=== PATIENT | female | born 1945 | race Caucasian/White ===

== ENCOUNTER 2017-10-01 17:33 | Emergency (ER) | payer MEDICARE, OTHER ==
[~2017-10-01] VITALS: Ht 167.6 cm; Wt 43.1 kg
[2017-10-01] MEDS ORDERED: PAROXETINE HCL10 MG PO (17:39)
[2017-10-01] MEDS ORDERED: TRAZODONE50 MG PO (17:39)
[2017-10-01] MEDS ORDERED: SYMBICORT 10.10.2 M1 IH (17:40)
[2017-10-01] MEDS ORDERED: IPRATROPIUM BROM3 M2 IH (17:40)
[2017-10-01] MEDS ORDERED: BUDESONIDE0.25 MG/2 IH (17:41)
--- NOTE | 2017-10-01 17:43 | Emergency Room Report ---
History of Present Illness Time Seen by [id number] Presenting Problem in Triage Pt arrived:Walked Presenting Problem:PT REPORTS BEING FEEL BACK MOST OF THE DAY. CALLED EMS R/T INCREASED SOA. 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 N Clinical Suspician of Infection? N Mental Status: 1 - Regular (Normal Baseline) Sepsis Risk:Low Sepsis Risk Have you (or family members/close friends) recently traveled outside the [place]? N If Yes, where/when: Have you had exposure to infectious disease within the past month? N TB? Other? Specify: Pt with oxygen dependent COPD, quit smoking one month ago but 51 py hx prior to that; had wheezing at home and called EMS; received duoneb and immediately felt better and states "I wish I could have gotten the ambulance to turn around". Has chronic cough, no fever, no calf pain, no CP, no complaints now. ALLERGIES Coded Allergies: No Known Allergies (10/01/17) Home Medications Reported Medications PAROXETINE HCL (Paroxetine Hcl) 10 MG PO DAILY #30 Trazodone Hcl (Trazodone HCl) 50 MG PO QHS #30 IPRATROPIUM/ALBUTEROL SULFATE (Iprat-Albut 0.5-3(2.5) MG/3 Ml) 3 ML IH Q6HP PRN SOA BUDESONIDE/FORMOTEROL FUMARATE (Symbicort 160-4.5 Mcg Inhaler) 1 AER IH BID Budesonide (Pulmicort) 0.25 MG IH BID History Medical History General CAD? No Angina: No MS: No Hypertension? No Hyperlipidemia? No CHF? No DVT? No PE? No COPD? Yes Asthma? No Anemia? No GERD? No Gastric ulcers? No GI Bleed? No Hernia? No Thyroid Problems? No Hypothyroidism? No CVA? No Seizures? No Diabetes? No Renal Insuffiency? No End Stage Renal Disease? No UTI? No Stones? No GB Disease: No Nephritic Syndrome? No Asplenia? No Hepatitis? No Sickle Cell Disease? No Arthritis? No Migraines? No Cataracts? No Glaucoma? No MRSA? No HIV? No TB? No Anxiety? No Depression? Yes Cancer? No More? No Immunization Hx DT/Tetanus Unknown Surgical Hx Previous Surgery?Y EXP Tubal Ligation HYSTERECTOMY Family History Family Hx Diabetes Yes CAD Yes Hypertension Yes Hyperlipidemia Yes Cancer Yes TB Yes Social History Smoking Hx Smoker: Former Smoker Tobacco: No Packs/day 1 1/2 - 2 Packs Alcohol Alcohol: No Review of Systems All Other Systems Reviewed and Negative Respiratory see HPI Physical Exam Vital Signs Vital Signs Date Time Temp Pulse Resp B/P Pulse O2 O2 Flow FiO2 Ox Delivery Rate 10/01 1902 116 16 130/65 94 3 10/01 1817 108 18 110/83 93 3 10/01 1740 95 10/01 1734 98.1 101 18 119/67 95 3 General Appearance normal appearance, WD/WN, no apparent distress, thin Eye Exam - bilateral eye normal exam, bilateral eye PERRL, bilateral eye EOMI Neck normal inspection, non-tender, supple, full range of motion Respiratory Status Yes: trachea midline, chest symmetrical, non tender chest, productive cough. No : respiratory distress, tender on palpation, use of accessory muscles, pain on inspiration, pain on expiration, non productive cough (on oxygen NC). Lung Sounds bilateral: decreased breath sounds (no rrw). Cardiovascular normal exam, regular rate/rhythm, no peripheral edema, no gallop, no JVD, no murmur, no rub, normal peripheral pulses Gastrointestinal normal bowel sounds, normal exam, non tender, soft, no organomegaly, no pulsatile mass (scaphoid), no guarding, no rebound Extremities non-tender, normal range of motion, normal inspection, normal capillary refill, no calf tenderness, no pedal edema Strength 5 Upper Ext (L), 5 Upper Ext (R), 5 Lower Ext (L), 5 Lower Ext (R) Neurologic alert, normal exam, no motor/sensory deficits, oriented x 3 Glascow Coma Scale Glascow Coma Scale Response Value EYE response: 4 Spontaneously 4 MOTOR response: 6 OBEYS 6 VERBAL response: 5 Oriented & Converses 5 Total 15 Skin intact, normal color, warm/dry, pallor Medical Decision Making LABS/Meds/Orders Pt receiving controlled substance in ED? No Results/Orders Laboratory Tests 10/01/171809: Lactic Acid 1.0 10/01/171809: Sodium 139, Potassium 4.5, Chloride 101, Carbon Dioxide 28, BUN 29 H, Creatinine 0.9, Estimated Creat Clear 40 L, Estimated GFR (MDRD) 62, Glucose 101, Calcium 9.4, Total Bilirubin 0.3, AST 17, ALT 23, Alkaline Phosphatase 91, Total Protein 8.3 H, Albumin 3.7, Globulin 4.6 H, Albumin/Globulin Ratio 0.8 L, WBC 12.5 H, RBC 5.13, Hgb 14.1, Hct 44.1, MCV 85.9, RDW 15.1, Plt Count 446 H, MPV 6.6 L, Gran % 83.7 H, Gran # 10.5 H, Lymphocytes % 8.4 L, Monocytes % 3.6, Eosinophils % 3.6, Basophils % 0.7, Lymphocytes # 1.1, Monocytes # 0.5, Eosinophils # 0.5 H, Basophils # 0.1, PUBS MCHC 32.0, MCH 27.5 Current Medication Orders Sig/Timothy Start time Last Medication Dose Route Stop Time Status Admin Methylprednisolone 125 MG ONCE ONE 10/01 1930 AC Sodium Succinate IV 10/01 1931 Sodium Chloride 10 ML PRN PRN 10/01 1745 AC IV 10/02 1743 Orders Procedure Date/time Status CHEST-PORTABLE 10/01 1743 Active IV SALINE LOCK 10/01 1743 Active OXYGEN PER NURSE 10/01 1743 Active CULTURE, BLOOD 10/01 1743 Active LACTIC ACID 10/01 1743 Complete CBC WITH AUTO DIFF 10/01 1743 Complete CHEM 12 PROFILE 10/01 1743 Complete XRAY/CT/US XRAY/CT/US XRAY chest XR interpretation by reviewed by me Xray Results no infiltrates, normal heart size, normal lung inflation ender ( COPD neg acute) Departure Departure Time of Disposition 1914 Disposition DC Home or Self Care(routine) Clinical Impression Primary Impression: COPD exacerbation Condition STABLE Referrals Diana Paulino APRN (Family) Patient Instructions Chronic Obstructive Pulmonary Disease Additional Instructions Medrol dosepak, see Diana in two to three days, continue current breathing treatments Discharge Counseling Counseled pt/family regarding diagnosis, test results, medications/RX, home care, follow up needs Prescriptions Current Visit Scripts Methylprednisolone (Medrol Dose Kamran) 4 MG PO UD #1 KAMRAN TAKE DIRECTED ON PACKAGING ED Critical Care Critical Care No at 1918
--- OUTSIDE RECORDS SUMMARY | 2017-10-01 17:53 | External Medical Summary Rpt | CCD ---
Author Author ALYSSA Address Unknown Phone [email or web address] Purpose Continuity of Care Document - through 2016
--- OUTSIDE RECORDS SUMMARY | 2017-10-01 17:53 | External Medical Summary Rpt | CCD ---
Author Author ALYSSA Address Unknown Phone [email or web address] Purpose Continuity of Care Document - through 2016
--- OUTSIDE RECORDS SUMMARY | 2017-10-01 17:54 | External Medical Summary Rpt | CCD ---
Author Author [employer] Address Unknown Phone Unavailable Purpose Continuity of Care Document - through 2016
--- OUTSIDE RECORDS SUMMARY | 2017-10-01 17:54 | External Medical Summary Rpt ---
Author Author ALYSSA Piña, [employer] Address Unknown Phone Unavailable
--- OUTSIDE RECORDS SUMMARY | 2017-10-01 17:54 | External Medical Summary Rpt | CCD ---
Demographics Preferred Language Frisian Marital Status Unknown Pentecostal Affiliation Unknown Race Unknown Ethnic Group Unknown Author Author , ALYSSA SHAH Address Unknown Phone Immunization No patient found.
--- OUTSIDE RECORDS SUMMARY | 2017-10-01 17:54 | External Medical Summary Rpt | CCD ---
Demographics Preferred Language Swedish Marital Status Unknown Adventist Affiliation Unknown Race Unknown Ethnic Group Unknown Author Author , ALYSSA SHAH Address Unknown Phone Immunization No patient found.
[2017-10-01 18:36] LABS: HEMOGLOBIN 14.1 g/dL (12.2-16.2); LYMPH # 1.1 K/mm3 (0.7-4.5); LYMPH % 8.4 % (10-50.0)
[2017-10-01] MEDS ORDERED: MEDROL 4MG. DOSE4 MG PO (19:16)
[2017-10-01 19:35] VITALS: BP 105/82
--- NOTE | 2017-10-02 11:20 | RADIOLOGY REPORT PS360 ---
CHEST-PORTABLE HISTORY: SOA, COUGH short of breath cough congestion COPD Patient Age: 72 years: Female Ordering Physician: Lilian Mathew MD TECHNIQUE: AP portable upright chest COMPARISON : Previous chest film 05/10/2015 FINDINGS . Emphysema/ COPD findings with prominent hyperexpansion as seen on previous chest film. No focal pneumonia. No pneumothorax. No active disease. Heart, bita and mediastinal structures appear stable and satisfactory. IMPRESSION: COPD. nothing definitely acute
== END 2017-10-01 19:35 | disposition home or self-care (01) ==
LOC: ER 17:33
PROVIDERS: Emergency Medicine
DX: J44.1 Chronic obstructive pulmonary disease with (acute) exacerbation (principal); Z87.891 Personal history of nicotine dependence